=== PATIENT | female | born 1965 | race Caucasian/White ===

== ENCOUNTER → 2022-12-17 | Outpatient (CLI) | payer OTHER ==
--- NOTE | 2022-12-17 13:19 | XR ---
EXAMINATION TYPE: XR lumbosacral spine min 4V DATE OF EXAM: 12/17/2022 CLINICAL HISTORY: Chronic low back pain TECHNIQUE: Frontal, lateral, and oblique images of the lumbar spine are obtained. COMPARISON: None FINDINGS: There are 5 lumbar type vertebral bodies identified. The lumbar spine shows satisfactory alignment without evidence of acute fracture or dislocation. L5-S1 disc space is mildly narrowed. Sunny tebral body heights and disk space heights are otherwise within normal limits. There are bilateral fa cet hypertrophic degenerative changes at L4-L5 and L5-S1. On the a cone-down lateral view, there is suggestion of a chronic L5 pars interarticularis defect. There is no spondylolisthesis. An endovascul ar aortoiliac stent graft is present as are clips projecting over the right upper quadrant. IMPRESSION: 1. Facet degenerative changes at L4-L5 and L5-S1. 2. On the lateral coned-down view, there is suggestion of a chronic L5 pars interarticularis defect.
== END | disposition home or self-care (01) ==
LOC: RADXRMAIN 11:08
PROVIDERS: ATTEND Family Medicine
DX: M47.817 Spondylosis without myelopathy or radiculopathy, lumbosacral region (principal)
CPT/HCPCS: 72110

== ENCOUNTER → 2023-02-25 | Outpatient (CLI) | payer BC ==
--- NOTE | 2023-02-26 20:16 | EEG ---
ELECTROENCEPHALOGRAM REPORT PREAMBLE: This is a 57-year-old female with headaches since she suffered from COVID in November 2022. CURRENT MEDICATIONS: 1. Aspirin. 2. Multivitamins. 3. Tylenol. EEG FINDINGS: This is a 21-channel digital EEG recorded with video component, utilizing 10/20 international system with referential and bipolar montages. The recording predominantly consists of low-voltage fast frequency beta activity seen in posteriorly bihemispheric region. Background seems to be slightly reactive to eye opening and closing. Intermittent alpha activity in 11 hertz was seen, which was posterior dominant. Photic driving response was seen with some flash frequencies. Different stages of sleep were not seen. No focal or generalized epileptiform activity was seen. IMPRESSION: This is a mildly abnormal EEG due to background suppression with excessive low-voltage fast frequency beta activity. This is suggestive of nonspecific generalized cerebral dysfunction, can be seen with encephalopathy or medication effect. Clinical correlation is recommended. No epileptiform activity was seen. MMCONNORL / IJN: [id number] /
== END ==
LOC: NEUROMAIN 07:42
PROVIDERS: ATTEND Family Medicine
DX: U09.9 Post COVID-19 condition, unspecified (principal)
CPT/HCPCS: 95816